=== PATIENT | female | born 1990 | race African-American/Black ===

== ENCOUNTER 2019-09-12 17:34 | Emergency (ER) | payer SELFPAY ==
[~2019-09-12] VITALS: Ht 144.8 cm; Wt 25.9 kg
[~2019-09-12 17:34] MED LIST: NOCURR
[2019-09-12 20:04] VITALS: BP 140/80
== END 2019-09-12 20:29 | disposition home or self-care (01) ==
LOC: EMS 17:35
DX: H10.89 Other conjunctivitis (principal); F17.210 Nicotine dependence, cigarettes, uncomplicated